=== PATIENT | male | born 1955 | race Caucasian/White ===

== ENCOUNTER 2017-01-21 12:57 | Emergency (ER) | payer BC ==
[~2017-01-21] VITALS: Ht 177.8 cm; Wt 136.3 kg
[~2017-01-21 12:57] MED LIST changes: -ARIP10TA16 PO; -DULO60CA7 PO; -FURO40TA4 PO; -HCT25T PO; -IBUP-1096 PO; -LORA10TA7 PO; -LSNP10T PO; -METF500T4 PO; -POTA10CA43 PO; -PRAM0.373 PO; -PROP20TA5 PO; -SOLI10TA2 PO; -SRTR100T PO; -TESTOSTERONE INJ
[2017-01-21] MEDS ORDERED: NITROGLYCERIN SUBLINGUAL 0.4 MG (NITROQUICK) TABLET SL ONE (13:14)
[2017-01-21] MEDS ORDERED: ASPIRIN 81 MG CHEW (LOW-DOSE) ONE (13:14)
[2017-01-21] MEDS: NITROGLYCERIN SUBLINGUAL 0.4 MG (NITROQUICK) TABLET SL PRN ×2 (13:20→13:37)
[2017-01-21] MEDS ORDERED: ASPIRIN 81 MG CHEW (LOW-DOSE) PO ONE (13:35)
[2017-01-21] MEDS ORDERED: SODIUM CHLORIDE FLUSH 10 ML SYR IV PRN (13:35)
[2017-01-21] MEDS ORDERED: SODIUM CHLORIDE FLUSH 3 ML SYR IV PRN (13:35)
--- NOTE | 2017-01-21 14:19 | Diagnostic Imaging Report ---
INDICATION: Chest pain Frontal chest obtained at 211 hours p.m. There is cardiomegaly. Mediastinal silhouette is unremarkable. There is no acute infiltrate or pneumothorax or pleural fluid. IMPRESSION: Cardiomegaly. No acute process in the chest. Dictated by: Dictated on workstation # [id number]
[2017-01-21] MEDS ORDERED: PRAM0.373 PO (14:27)
[2017-01-21] MEDS ORDERED: PROP20TA5 PO ×2 (14:27→14:46)
[2017-01-21] MEDS ORDERED: FURO40TA4 PO (14:27)
[2017-01-21] MEDS ORDERED: LSNP10T PO (14:27)
[2017-01-21] MEDS ORDERED: HCT25T PO (14:27)
[2017-01-21] MEDS ORDERED: DULO60CA7 PO (14:27)
[2017-01-21] MEDS ORDERED: METF500T4 PO (14:27)
[2017-01-21] MEDS ORDERED: ARIP10TA16 PO (14:27)
[2017-01-21 14:40] LABS: BASOPHILS % (AUTO) 0 % (0-2); EOSINOPHILS # (AUTO) 0.3 10^3uL; EOSINOPHILS % (AUTO) 4 % (0-4); LYMPHOCYTES # (AUTO) 2.2 X10^3; MEAN CORPUSCULAR HEMOGLOBIN 30.6 PG (26.0-34.0); MEAN CORPUSCULAR HGB CONC 32.5 g/dL (31.0-37.0); MEAN CORPUSCULAR VOLUME 94 FL (80-100); MEAN PLATELET VOLUME 9.7 FL (6.0-9.5); MONOCYTES # (AUTO) 0.7 X10^3; MONOCYTES % (AUTO) 11 % (3-11); NEUTROPHILS # (AUTO) 3.6 X10^3; NEUTROPHILS % (AUTO) 53 % (51-67); PLATELET COUNT 245 10^3uL (150-450); WHITE BLOOD COUNT 6.75 10^3uL (4.0-11.0)
--- NOTE | 2017-01-21 14:44 | NUR ---
PTS ARRIVES AND REPORTS THAT PT HAS RECENTLY STARTED THE MED REXULTI. SHE STATES SHE IS CONCERNED ABOUT POSSIBLE MEDICATION INTERACTIONS AND FATIGUE.
[2017-01-21] MEDS ORDERED: LORA10TA7 PO (14:46)
[2017-01-21] MEDS ORDERED: SOLI10TA2 PO (14:46)
[2017-01-21] MEDS ORDERED: IBUP-1096 PO (14:46)
[2017-01-21] MEDS ORDERED: TESTOSTERONE INJ (14:46)
[2017-01-21 14:50] LABS: ALBUMIN 4.6 g/dL (3.4-5.0); ALKALINE PHOSPHATASE 88 U/L (38-126); ANION GAP 17.2 MEQ/L (3-15); BUN/CREATININE RATIO 15 (10-20); CALCULATED IONIZED CALCIUM 4.3 mg/dL (3.8-4.6); CREATINE KINASE 194 U/L (55-170); TOTAL PROTEIN 7.6 g/dL (6.4-8.5)
[2017-01-21] MEDS ORDERED: POTA10CA43 PO (14:56)
[2017-01-21] MEDS ORDERED: SRTR100T PO (14:56)
[2017-01-21] MEDS ORDERED: NS IV 500 ML 500 ML IV SCH (15:15)
--- NOTE | 2017-01-21 16:37 | Diagnostic Imaging Report ---
PROCEDURE: CT angiography of the chest with contrast. TECHNIQUE: Multiple contiguous axial images were obtained through the chest after uneventful bolus administration of intravenous contrast. Reconstructed CTA MIP acquisitions were also performed. DATE: January 21, 2017. COMPARISON: Chest radiograph, January 21, 2017. INDICATION: A 61-year-old male, chest pain and elevated D-dimer. FINDINGS: There is minimal atelectasis or scarring in the left lower lobe. There is no additional focal airspace consolidation. There is no pulmonary nodule. There is no pneumothorax. There is no pleural effusion. The central airways are patent. There is no identified pulmonary embolus. The main pulmonary artery is unremarkable in caliber. The heart is not grossly enlarged. There is no pericardial effusion. There is very slight reflux of contrast into hepatic veins which potentially could indicate some elevation of right-sided heart pressures. Limited visualized portions of the upper abdomen are unremarkable in appearance. There is no abnormally enlarged mediastinal, hilar, or axillary lymph node which meets CT size criteria for adenopathy. There are multilevel degenerative changes of the spine. There are right greater than left glenohumeral degenerative changes. There is no identified acute bony abnormality. MIP reformats do limit bone detail on reformats. IMPRESSION: CT CHEST. 1. No identified pulmonary embolus or other acute cardiopulmonary abnormality. 2. Very mild reflux of contrast into the hepatic veins which may indicate elevation of right-sided heart pressures. Dictated by: Dictated on workstation # [id number]
[2017-01-21 17:09] VITALS: BP 144/66
== END 2017-01-21 17:20 | disposition home or self-care (01) ==
LOC: EDUNIT# 12:57 → ED 13:18
DX: F41.0 Panic disorder [episodic paroxysmal anxiety] (principal); E86.0 Dehydration; R07.89 Other chest pain
CPT/HCPCS: 36415; 71010; 71275; 80053; 82550; 82553; 83880; 84484; 85025; 85379; 85610; 86140; 93005; 99285; J7040; Q9967

== ENCOUNTER → 2017-01-21 | Outpatient (CLI) | payer BC ==
[~2017-01-21] MED LIST: ARIP10TA16 PO; ARIP2TAB9 PO; CITA40TA5 PO; DULO60CA7 PO; FINA5TAB PO; FNST5T PO; FURO40TA4 PO; GLUC-113 PO; HCT25T PO; HYDR-3811 PO; IBUP-1096 PO; LAMO200T PO; LORA0.5T PO; LORA10TA7 PO; LSNP10T PO; METF500T4 PO; MULT-35 PO; POTA10CA43 PO; PRAM0.373 PO; PROP10TA8 PO; PROP20TA5 PO; SOLI10TA2 PO; SRTR100T PO; TAMS0.4C2 PO; TESTOSTERONE INJ; VITA-37 PO; ZINC50TA54 PO; ZOLP5TAB PO
[2017-01-21 14:19] VITALS: BP 128/82
--- NOTE | 2017-01-21 14:19 | Urgent Care T Sheet Gen (E) ---
Intake General Pulse: 60 Blood Pressure Systolic: 128 Blood Pressure Diastolic: 82 Respirations: 22 SPO2: 96 History of Present Illness Initial Comments Patient presents with substernal chest pain, heart palpitations, sweating and malaise since noon. Never had this happen before. Patient feels like he is going to pass out. History of HTN. Patient is unable to recall the rest of his medical history including daily meds. Allergies: Coded Allergies: Levofloxacin (Unverified Allergy, 03/03/13) [place] (Unverified Allergy, 03/03/13) ciprofloxacin (Unverified Allergy, 03/03/13) ciprofloxacin HCl (Unverified Allergy, 03/03/13) latex (Unverified Allergy, 03/03/13) theophylline anhydrous (Unverified Allergy, 03/03/13) Home Meds Active Scripts Hydrocodone Bit/Acetaminophen (Hydrocodon-Acetaminophen 7.5-325)1 Each Tablet1 Each PO Q4H PRN PAIN #20 TAB Prov:CARLY WAYNE MD 10/20/15 Reported Medications Zinc Amino Acid Chelate (Zinc)50 Mg [id number] Mg PO DAILY 10/20/15 Zolpidem Tartrate (Ambien)5 Mg Tablet5 Mg PO HS 10/20/15 Tamsulosin HCl 0.4 Mg Cap.er.24h0.4 Mg PO HS 10/20/15 Citalopram Hydrobromide 40 Mg Abqtbw15 Mg PO HS 10/20/15 Propranolol HCl 10 Mg Yvaetv00 Mg PO NEEDED 03/03/13 Gluc 2KCL/Chondr/Ruth Hy/Hy Ac (Glucosamine & Chondroitin Cap)1 Each Capsule1 Each PO BID 03/03/13 Multivitamin (Daily Multiple Vitamin)1 Each Tablet1 Each PO DAILY 03/03/13 Vitamin B Complex (B Complete)1 Each Tablet1 Each PO DAILY 03/03/13 Aripiprazole (Abilify)2 Mg Tablet5 Mg PO HS 03/03/13 Lamotrigine 200 Mg [id number] Mg PO BID 03/03/13 Respiratory Constitutional Symptoms: Weakness Cardiovascular: Chest pain PalpitationsNo Syncope All Other Systems Reviewed Remaining Systems: All other systems reviewed with negative findings Past Sbutlbl-Rzlhhn-Exdecr Hx Surgeries/Hospitalizations Hospitalization/Surgery Hx: right and left knee surgery, toe surgery, right foot Respiratory Respiratory History: None Comment: cpap Cardiovascular Cardiovascular History: Murmurs Comment: tremors Neuro/Muscular Neuro/Muscular History: Other, see commnent Comment: Bipolar Genitouinary Genitourinary History: Urgency Comment: kidney stones, UTI history has little notice before has to go Gastrointestinal GI/Endocrine History: None Diabetes Diabetes: No HEENT Impaired Vision: Glasses Hearing Impaired: None Integumentary Integumentary History: Skin cancer Comment: Precancerous skin Cancer History of Cancer?: No Psychosocial Behavior Disorders: Depression Physical Exam Physical Exam General Appearance: Moderate distress Respiratory Exam: Respiratory distress (quick, shallow breaths; labored speech ) Cardiovascular Exam: Bradycardia Skin Exam: Diaphoresis Pallor Neurologic/Psychiatric Exam: Abnormal gait (ataxia) Departure Urgent Care Impression Impression: Primary Impression: Chest pain Qualified Code: R07.89 - Other chest pain Departure Departed Disposition: To [facility] ED Condition: Stable Additional Instructions: Patient was alert and oriented. He drove himself to and refused an ambulance therefore I drove him to the ER where a nurse met us with a wheelchair in the parking lot. ER to assume care of probable cardiac patient. End of report . REAL CORTEZ January 21, 2017 14:19
== END ==
LOC: MHUC 12:35
PROVIDERS: ATTEND Physician Assistant
DX: R07.89 Other chest pain (principal)